=== PATIENT | male | born 1960 | race Caucasian/White ===

== ENCOUNTER 2020-07-23 09:28 | Outpatient (CLI) | payer OTHER ==
[~2020-07-23 09:28] MED LIST: REGADENOSON 0.4 MG/5 ML SYRINGE ONE
[2020-07-24] MEDS ORDERED: REGADENOSON 0.4 MG/5 ML SYRINGE ONE (07:12)
== END 2020-07-23 23:59 | disposition home or self-care (01) ==
LOC: CVU 09:28 → CFH 23:59
PROVIDERS: ATTEND Internal Medicine Cardiovascular Disease
DX: I35.8 Other nonrheumatic aortic valve disorders (principal); I11.9 Hypertensive heart disease without heart failure; R00.1 Bradycardia, unspecified
CPT/HCPCS: 78452; 93017; 93306; 93356; A9502; J2785